=== PATIENT | female | born 1965 | race Caucasian/White ===

== ENCOUNTER 2016-04-16 10:31 | Emergency (ER) | payer OTHER ==
[~2016-04-16] VITALS: Ht 160 cm; Wt 50.0 kg
[2016-04-16 10:35] VITALS: BP 121/83; PULSE 81; O2SAT 93
[2016-04-16 11:05] VITALS: BP 126/78; PULSE 85; RESP 21; O2SAT 99
[2016-04-16 11:31] LABS: BASOPHILS % (AUTO) 0.6 % (0-3); EOSINOPHILS % (AUTO) 1.4 % (0-5); MONOCYTES % (AUTO) 7.5 % (4-12); Mean Corpuscular Hemoglobin 32.7 pg (27.0-35.0); Mean Corpuscular Volume 94.5 fL (81-100); Platelet Count 250 bil/L (150-400)
--- NOTE | 2016-04-16 11:46 | ED.REPORT ---
HPI-Dizziness / Weakness Date of Service Apr 16, 2016 ED Provider: Krishan Martinez PA-C [employer] is a 50-year-old female who presents with chief complaint of heart palpitations and dizziness. The patient describes a one week history of intermittent lightheadedness occurring 3-4 times a day for less than a minute each. Last night she experienced 3 episodes of heart palpitations that caused her great deal of concern and brought her to the ED this morning. Patient reports a history 2 ablations approximately 10 years ago. She had been seen by Dr. Meadows in [place] who had her wear an event monitor and performed a stress echo approximately one year ago. Patient reports that Dr. Meadows told her she was "fine." She also complains of feeling quite fatigued, bloated and unintentional weight loss over the last year. She reports poor eating habits as well as a great deal of stress related to family members with health difficulties. Admits a 5-pack-year history of smoking but stopped approximately 5 years ago. Denies headache, vision changes, ear symptoms, syncope, chest pain, dyspnea, shortness of breath, wheezing, abdominal pain, vomiting, diarrhea, constipation, melena, hematochezia. Denies taking any medications and denies any history of hypertension, hyperlipidemia, LA, CVA, drug use. Nursing Notes Stated Complaint: LIGHTHEADED, HEART PALPITATIONS Chief Complaint: Dysrhythmia/Cardiac Nursing Notes Reviewed: Yes Allergies: Coded Allergies: Penicillins (Verified Allergy, Intermediate, Hives, 10/30/15) No Active Prescriptions or Reported Meds General Time Seen by MD: 10:59 Chief Complaint Lightheaded Risk Factors CVA Risk Stratification SmokingNo Age >60, No Anticoag/bleed diathesis, No Atrial fibrillation, No Carotid stenosis, No Clotting disorder, No Diabetes mellitus, No EtOH use, No Hyperlipidemia, No Hypertension, No Oral contraceptive, No Prior CVA/TIA Past Medical History Past Medical History Notes: PCP: Dr. Lauren Past Medical History History of A. fib with ablation, not on blood thinners Past Surgical History Cardiac ablation x2 x2 Family History Noncontributory Smoking History Former Smoker Social History Alcohol Use: "Social" Drug Use: Denies drug use Other Social History: Good social support, Lives alone, Local resident Ambulatory Status Independent Review of Systems General: Admits to fatigue. denies fever, chills, night sweats HEENT: Denies congestion, headache, sore throat. Respiratory: Denies dyspnea, cough, shortness of breath, wheezing. Cardiovascular: Denies chest pain, palpitations. Gastrointestinal: Admits bloating. Denies vomiting, diarrhea, abdominal pain. Genitourinary: Denies frequency, urgency, dysuria, hematuria. Otherwise as noted in HPI. Physical Exam General: Thin, no acute distress, mildly anxious. Head: Atraumatic, normocephalic. Eyes: No scleral icterus or injection. No discharge. Vision grossly intact. ENT: Voice clear, hearing grossly intact. Respiratory: Regular rate and rhythm. Breath sounds present, clear to auscultation and equal bilaterally. Cardiovascular: Regular rate and rhythm, without murmur, gallop or rub. No pedal edema. Gastrointestinal: Abdomen flat and non-tender without guarding or rebound. Bowel sounds normoactive. No masses appreciated. Skin: Warm and dry. Neurological: Grossly nonfocal. Psychological: alert and oriented. Speech appropriate, linear and logical. Behavior appropriate. Initial Vital Signs Vital Signs (First) Date Time Temp Pulse Resp B/P Pulse Ox O2 Delivery O2 Flow Rate FiO2 04/16/16 10:35 36.2 81 121/83 93 04/16/16 11:05 21 Room Air Initial VS: Reviewed Interpretation & Diagnostics Lab Results Interpretation Result Diagram: 04/16/16 1110 04/16/16 1110 Test 04/16/16 11:10 White Blood Count 3.6th/mm3 (3.8-10.1) Red Blood Count 4.19mil/mm3 (3.90-5.20) Hemoglobin 13.7g/dL (12.0-15.6) Hematocrit 39.6% (35.0-46.0) Mean Corpuscular Volume 94.5fL (81-100) Mean Corpuscular Hemoglobin 32.7pg (27.0-35.0) Mean Corpuscular Hemoglobin Concent 34.6% (32.0-37.0) Red Cell Distribution Width 13.1% (12.3-15.4) Platelet Count 250bil/L (150-400) Neutrophils (%) (Auto) 67.0% (40-74) Lymphocytes (%) (Auto) 23.2% (14-46) Monocytes (%) (Auto) 7.5% (4-12) Eosinophils (%) (Auto) 1.4% (0-5) Basophils (%) (Auto) 0.6% (0-3) Sodium Level 139mEq/L (134-144) Potassium Level 3.7mEq/L (3.5-5.2) Chloride Level 101mEq/L (97-108) Carbon Dioxide Level 27mmol/L (18-29) Blood Urea Nitrogen 11mg/dL (6-24) Creatinine 0.58mg/dL (0.57-1.00) Estimat Glomerular Filtration Rate 156mL/min (>59) Glucose Level 79mg/dL (60-99) Calcium Level 9.5mg/dL (8.5-10.1) Magnesium Level 2.0mg/dL (1.6-2.6) Total Bilirubin 0.4mg/dL (0.0-1.2) Aspartate Amino Transf (AST/SGOT) 22U/L (0-50) Alanine Aminotransferase (ALT/SGPT) 11U/L (0-32) Alkaline Phosphatase 53U/L (25-150) Troponin T 0.010ug/L (0.0-0.011) Total Protein 7.6g/dL (6.4-8.4) Albumin 4.3g/dL (3.4-5.0) Thyroid Stimulating Hormone (TSH) 1.390uIU/mL (0.450-4.500) X-Ray Chest Interpretation Chest Xray Interpretation: PROCEDURE: X-RAY CHEST ONE VIEW, PORTABLE ([id number]) INDICATIONS: Dizziness IMPRESSION: No acute disease Interpretation / Wet Read by: Interpret - Radiologist, Interp - P Re-Eval/Medical Decision Med Decision/Clinical Course Discussed case with Dr. Hampton I discussed this case with Dr. Hampton. In brief this is a 50-year-old female who presents with chief complaint of brief episodes of lightheadedness over the last week as well as 3 episodes of brief palpitations last night. Her symptoms are not present in the department this time. History significant for atrial fibrillation treated with 2 ablations approximately 10 years ago. He by splunk dashboard developer in [place] approximately year ago, fitted with an event monitor and performed a stress test. Patient reports that she was given a clean bill of health after these tests. She states that the palpitations she felt last night are different than the one she felt prior to those tests. CBC, CMP, troponin, magnesium, TSH, EKG , chest x-ray are all normal in the department today. She has no risk factors for TIA other than a short history of smoking that ended 5 years ago. Clinical presentation appears atypical for pulmonary embolus, no findings suggesting DVT. Discussed the case with Dr. Salinas from the residency clinic. He agreed to see the patient and arrange another event monitor. I was also concerned about patient's reported one-year history of unintentional weight loss and bloating. She has no red flag symptoms or findings for malignancy at this time and I am more concerned about depression. I asked her to talk about her weight loss and depression with her primary care provider. Provided follow-up referral and return precautions. Patient Discharge & Departure Impression: Primary Impression: Palpitations Disposition: Home Discharge Condition All VS Reviewed: Yes Condition: Stable Patient Instructions: Palpitations (ED) Additional Instructions: Evaluation for lightheadedness and palpitations in the ED today. Physical is extremely reassuring, and all the tests we performed are basically normal. We feel confident that your symptoms were not caused by a heart attack, blood clot or stroke. You are stable and safe to be discharged to home. I contacted the on-call physician at the residency clinic who suggested that you call on Monday to arrange follow up with him sooner than the appointment that you already have. Call the [facility] and ask for an appointment with Dr. Salinas. At that time he can make arrangements to have an event monitor placed to determine the nature of your palpitations. Please also mention your possible depression and unintentional weight loss, so that these can be addressed. He is return to emergency department for any new or worsening symptoms including extended periods of palpitations, chest pain, shortness of breath, loss of consciousness or near loss of consciousness. Referrals: [facility] EDSupervising Provider for APC: Fabio Hampton MD [facility] Krishan Martinez PA-C Apr 16, 2016 11:46
[2016-04-16 11:53] LABS: TROPONIN T 0.01 ug/L (0.0-0.011)
--- NOTE | 2016-04-16 12:17 | DRSVH ---
PROCEDURE: X-RAY CHEST ONE VIEW, PORTABLE ([id number]) INDICATIONS: Dizziness TECHNIQUE: One view of the chest was acquired. COMPARISON: [facility], CR, XR CHEST 1VW (PORTABLE), 08/29/2015, 16:06. FINDINGS: Surgical changes and devices: None. Lungs and pleura: No pleural effusions or pneumothorax. Lungs are clear. Mediastinum: Mediastinal contours appear normal. Heart size is normal. Bones and chest wall: No suspicious bony lesions. Overlying soft tissues appear unremarkable. IMPRESSION: No acute disease Dictated by: Marco Giordano M.D. on 04/16/2016 at 12:15 Approved by: Marco Giordano M.D. on 04/16/2016 at 12:15
[2016-04-16 12:44] VITALS: BP 100/64; PULSE 80; RESP 25; O2SAT 99
[2016-04-16 13:29] VITALS: BP 110/65; PULSE 70; RESP 20; O2SAT 100
== END 2016-04-16 14:11 | disposition home or self-care (01) ==
LOC: SED 10:31
DX: R00.2 Palpitations (principal); R42 Dizziness and giddiness; I48.91 Unspecified atrial fibrillation; Z87.891 Personal history of nicotine dependence; Z88.0 Allergy status to penicillin

== ENCOUNTER 2016-04-27 10:13 | Emergency (ER) | payer OTHER ==
[~2016-04-27] VITALS: Ht 160 cm; Wt 47.7 kg
[2016-04-27 10:17] VITALS: BP 131/90; PULSE 83; RESP 18; O2SAT 99
[2016-04-27 10:49] LABS: BASOPHILS % (AUTO) 0.4 % (0-3); EOSINOPHILS % (AUTO) 1.2 % (0-5); MONOCYTES % (AUTO) 12.1 % (4-12); Mean Corpuscular Hemoglobin 32.7 pg (27.0-35.0); NEUTROPHILS % (AUTO) 55.3 % (40-74); Platelet Count 213 bil/L (150-400)
--- NOTE | 2016-04-27 11:02 | ED.REPORT ---
HPI-General Illness Date of Service Apr 27, 2016 ED Provider: Cristi Sanchez DO History of Present Illness: Ms. Liang Tapia is a pleasant 50-year-old female with past medical history significant for 2 ablations 8 years ago, currently not on any medications and periodically is followed up by her collar technical buyer Dr. Meadows of [place] with various Holter monitors and Z patches, who presents to [facility] emergency Department today for 5 hour history overnight disturbing heart palpitations that she describes as very irregular "like her heart is going over train tracks" extending down into her abdomen with a bounding pulse which she states moves her body. She is very disturbed by these findings overnight because usually subside within a few beats however these lasted 5 hours. She reports chronic night sweats, anxiety. She denies dizziness, headache, syncope, chest pain, fever, chills, shortness of breath, abdominal pain, constipation, diarrhea. Of note she developed a very painful tooth in her right lower jaw 3 months ago was prescribed seven-day course of clindamycin which she never took. On Monday, 5 days ago, she developed severe 10 out of 10 left-sided upper molar pain that she describes worst pain of her life which lasted for roughly 24 hours. She did not see a dentist, and began taking her clindamycin and using salt water rinses. Again she denies fever, chills, nausea, vomiting and the pain has since subsided without use of pain medications. Nursing Notes Stated Complaint: PALPITATIONS Chief Complaint: Dysrhythmia/Cardiac Nursing Notes Reviewed: Yes Allergies: Coded Allergies: Penicillins (Verified Allergy, Intermediate, Hives, 04/27/16) No Active Prescriptions or Reported Meds General Time Seen by MD: 11:01 Chief Complaint Other Sudden in Onset?: Yes Past Medical History Past Medical History Notes: PCP: Dr. Lauren Past Medical History History of A. fib with ablation, not on blood thinners Past Surgical History Cardiac ablation x2 x2 Family History Noncontributory Smoking History Former Smoker Social History Alcohol Use: "Social" Drug Use: Denies drug use Other Social History: Good social support, Lives alone, Local resident Ambulatory Status Independent Review of Systems A comprehensive review of systems was conducted with the patient and found to be negative except as above in the History of Present Illness. Complete sys rev & neg: except as marked. Physical Exam General: Pleasant lady sitting upright in bed appears older than stated age, thin and cachectic, appropriately interactive HEENT: Normocephalic, atraumatic. Stye present on left eyelid. External ears without defect. Pupils equal, round, and reactive to light and accommodation. Anicteric sclerae, moist conjunctivae, and no lid lag. Oropharynx free of erythema and cobble stoning with moist mucosa. Neck: Supple with full range of motion. No jugular venous distension. No bruits. No lymphadenopathy or thyromegaly. Cardiovascular: Regular rate and rhythm with no murmurs, rubs, or gallops appreciated Pulmonary: Clear to auscultation bilaterally with no crackles, wheezes, or rhonchi. Normal respiratory effort with no use of accessory muscles. Abdomen: Bowel tones present. Soft, nontender, thin, nondistended. No hepatosplenomegaly or masses appreciated. Extremities: No clubbing, cyanosis, edema, or lymphadenopathy appreciated. Skin: Normal temperature, turgor, and texture; no rash, ulcers, or subcutaneous nodules appreciated. Neurological: Cranial nerves grossly intact. Normal muscle strength, tone, and bulk. Reflexes, coordination, and sensory function within normal limits. No known gait impairment. Psychiatric: Normal mood and affect. Alert and oriented to person, place, and time. Vital Signs Vital Signs Date Time Temp Pulse Resp B/P Pulse Ox O2 Delivery O2 Flow Rate FiO2 04/27/16 10:17 36.2 83 18 131/90 99 Room Air Interpretation & Diagnostics Lab Results Interpretation Result Diagram: 04/27/16 1038 04/27/16 1038 Test 04/27/16 10:38 White Blood Count 2.5th/mm3 (3.8-10.1) Red Blood Count 4.19mil/mm3 (3.90-5.20) Hemoglobin 13.7g/dL (12.0-15.6) Hematocrit 39.4% (35.0-46.0) Mean Corpuscular Volume 94.0fL (81-100) Mean Corpuscular Hemoglobin 32.7pg (27.0-35.0) Mean Corpuscular Hemoglobin Concent 34.8% (32.0-37.0) Red Cell Distribution Width 13.0% (12.3-15.4) Platelet Count 213bil/L (150-400) Neutrophils (%) (Auto) 55.3% (40-74) Lymphocytes (%) (Auto) 31.0% (14-46) Monocytes (%) (Auto) 12.1% (4-12) Eosinophils (%) (Auto) 1.2% (0-5) Basophils (%) (Auto) 0.4% (0-3) Sodium Level 140mEq/L (134-144) Potassium Level 4.3mEq/L (3.5-5.2) Chloride Level 102mEq/L (97-108) Carbon Dioxide Level 25mmol/L (18-29) Blood Urea Nitrogen 11mg/dL (6-24) Creatinine 0.61mg/dL (0.57-1.00) Estimat Glomerular Filtration Rate 148mL/min (>59) Glucose Level 92mg/dL (60-99) Calcium Level 9.0mg/dL (8.5-10.1) Magnesium Level 2.0mg/dL (1.6-2.6) Total Bilirubin 0.5mg/dL (0.0-1.2) Aspartate Amino Transf (AST/SGOT) 25U/L (0-50) Alanine Aminotransferase (ALT/SGPT) 14U/L (0-32) Alkaline Phosphatase 55U/L (25-150) Troponin T < 0.010ug/L (0.0-0.011) Total Protein 7.4g/dL (6.4-8.4) Albumin 4.2g/dL (3.4-5.0) Hold Henry Top Tube Received (Received) Re-Eval/Medical Decision Med Decision/Clinical Course Ms. Liang Tapia has a history of multiple ablations for tachyarrhythmias, 8 years ago. She is being followed by technical buyer Dr. Dori Adan. She is currently not on any medications and her heart rate is controlled in the 80s. On EKG and throughout her stay she was in sinus rhythm between 70 and [address] no [address] elevations or depressions and her troponins were negative. She currently does not have symptoms that she describes this morning of unremitting and alarming palpitations. She is clearly anxious regarding this matter. Her laboratory values were within normal limits aside from a white count which was on the low end 2.5, although she does tend to run, on previous admits, around that range. Chest x-ray was unremarkable and showed no acute processes. Her vitals on admission were stable and have remained stable. We recommend close follow-up with her technical buyer in 1 weeks time. Discharge & Departure Shift Change Sign-Out Discussed Complaint(s): Yes Laboratory Evaluation: Lab evaluation discussed Response to Therapy: Unchanged Primary Impression: Palpitations Disposition: Home Discharge Condition All VS Reviewed: Yes Condition: Stable Patient Instructions: Palpitations (ED), Supraventricular Tachycardia (DC) Additional Instructions: During you visit to [facility] Emergency Department we obtained an EKG ( electrocardiogram, measures the electrical health of your heart), blood work for infectious markers, hemoglobin levels, electrolytes, and troponins to measure chemical markers for damage of the heart. All your lab values, troponin markers and EKG were within normal limits. Do not hesitate to call emergency services or your primary care physician if you experience any of the following. -High unrelenting fevers. -Fast heart rate at over 100 beats per minute for a sustained 15 minutes at rest. -Uncontrolled vomiting. -Severe hypertension or hypotension. -Syncope or loss of consciousness. -Chest pain. -Severe shortness of breath. Follow-up closely with her technical buyer Dr. Meadows at [facility] in [place] within 1 week's time. Follow up with your primary care physician in 1-2 weeks time following your emergency department visit for medication checks and general well-being. Referrals: Billie Lauren MD (PCP) Attending Statement The patient was seen and examined together with Dr. Sauceda on 04/27/16 and I have added additional information to the note above. copies to: Kalin Meadows MD; Billie Lauren MD, Timothy S DO Apr 27, 2016 11:02 SIENA SAUCEDA DO Apr 27, 2016 12:19
[2016-04-27 11:23] LABS: TROPONIN T < 0.010 ug/L (0.0-0.011)
--- NOTE | 2016-04-27 11:36 | DRSVH ---
PROCEDURE: X-RAY CHEST ONE VIEW, PORTABLE ([id number]) INDICATIONS: PALPITATIONS TECHNIQUE: One view of the chest was acquired. COMPARISON: [facility], CR, XR CHEST 1VW (PORTABLE), 04/16/2016, 11:33. [facility], CR, XR CHEST 1VW (PORTABLE), 08/29/2015, 16:06. [facility], CR, CHEST 1VW (PORTAB LE), 09/19/2014, 12:23. FINDINGS: Surgical changes and devices: None. Lungs and pleura: No pleural effusions or pneumothorax. Lungs are clear. Mediastinum: Mediastinal contours appear normal. Heart size is normal. Bones and chest wall: No suspicious bony lesions. Overlying soft tissues appear unremarkable. IMPRESSION: No acute process. Dictated by: Ernie Thompson M.D. on 04/27/2016 at 11:34 Approved by: Ernie Thompson M.D. on 04/27/2016 at 11:34
== END 2016-04-27 12:28 | disposition home or self-care (01) ==
LOC: SED 10:13
DX: R00.2 Palpitations (principal); R61 Generalized hyperhidrosis; F41.9 Anxiety disorder, unspecified; Z86.79 Personal history of other diseases of the circulatory system; Z98.890 Other specified postprocedural states; Z87.891 Personal history of nicotine dependence; Z88.0 Allergy status to penicillin

== ENCOUNTER 2016-10-15 20:23 | Emergency (ER) | payer OTHER ==
[~2016-10-15] VITALS: Ht 160 cm; Wt 49.1 kg
[2016-10-15 20:30] VITALS: BP 109/76; PULSE 74; RESP 16; O2SAT 100
--- NOTE | 2016-10-15 21:36 | DRSVH ---
PROCEDURE: X-RAY LEFT FOOT, TWO VIEWS ([id number]) INDICATIONS: FOOT PX TECHNIQUE: 2 views of the foot were acquired. COMPARISON: None. FINDINGS: Bones: No fractures or dislocations. No suspicious bony lesions. Soft tissues: No tibiotalar joint effusion. Achilles tendon appears normal. IMPRESSION: No acute radiographic findings. If pain persists, repeat study in 5-7 days is recommende d to exclude occult fracture. Dictated by: Nicky Roman M.D. on 10/15/2016 at 21:34 Approved by: Nicky Roman M.D. on 10/15/2016 at 21:35
--- NOTE | 2016-10-15 22:29 | ED.REPORT ---
HPI-Extremity Problem Lower Date of Service Oct 15, 2016 ED Provider: Kalin Mclean MD 50 yo female with pmh of ablation for arrhythmia, presents today with pain in the L foot. she states that pain began 3 days ago and has been progressively worse since that time. she denies tauma or overuse. The pain is located in he anterior foot and she cannot pinpoint one location for the pain. 8/10 that does not radiate. nothing makes pain better, worse with ambulation. Pain is not affected with palpation. denies fever, chills, loss of sensation, weakness. Nursing Notes Stated Complaint: PAIN IN LEFT FOOT Chief Complaint: General Complaint Nursing Notes Reviewed: Yes Allergies: Coded Allergies: Penicillins (Verified Allergy, Intermediate, Hives, 04/27/16) Scheduled PRN Naproxen (Naprosyn) 500 Mg Tablet 500 MG PO BID PRN PRN For Pain General Time Seen by MD: 22:00 Chief Complaint Other (L foot pain) Quality: Painful, Sharp, Stabbing Severity: Current: Pain level 8 out of 10 Pertinent Negative: Relieved by nothing Risk-Extremity Prob Lower Well's Criteria for DVT Well's DVT Score: 0 pts (low risk 5%) Past Medical History Past Medical History Notes: PCP: Dr. Lauren Past Medical History History of A. fib with ablation, not on blood thinners Past Surgical History Cardiac ablation x2 x2 Family History Noncontributory Smoking History Former Smoker Social History Alcohol Use: "Social" Drug Use: Denies drug use Other Social History: Good social support, Lives alone, Local resident Ambulatory Status Independent Review of Systems Constitutional: Denies: Chills, Fever Complete sys rev & neg: except as marked. Physical Exam Initial Vital Signs Vital Signs (First) Date Time Temp Pulse Resp B/P Pulse Ox O2 Delivery O2 Flow Rate FiO2 10/15/16 20:30 36.3 74 16 109/76 100 Room Air Initial VS: Reviewed, Vital signs normal General/Constitutional: Well-developed Head / Eyes: Atraumatic, Normocephalic, PERRL ENT: Mucous membranes moist, Conjunctiva normal, No scleral icterus Neck: Supple, Non-tender, Full range of motion Respiratory: Breath sounds normal, Clear to auscultation, No respiratory distress Cardiovascular: Regular rate & rhythm, Heart sounds normal, Intact distal pulses Upper Extremities: Vascular intact, Neuro intact, No swelling, No tenderness Skin: Warm, Dry, No cyanosis Neurologic: Alert, Oriented, Nonfocal Psychiatric: Mood/affect normal, Behavior normal, Normal thought content Ankle / Foot: Atraumatic, Inspection NL, Full range of motion, No swelling, No erythema, Non-tender, No deformity, Neurologic intact, Vascular intact, No ligamentous injury, Tendon function NL, No compartment syndrome, No circumferential injury, No edema Interpretation & Diagnostics X-Ray Interpretation Xray Interpretation: no acute process X-Ray Ordered: Foot left Interpretation / Wet Read by: Interpret - ED physician, Interp - Resident Re-Eval/Medical Decision Med Decision/Clinical Course imaging neg. symptomatology and PE not concerning for acute process. fracture poss, however unlikely with no hx of overuse/trauma. repeat xray in 7-10 days if pain continues unabated after splint placement. Counseled Regarding: Diagnosis, Lab results, Need for follow-up, When/why to return to ED Discharge & Departure Impression: Primary Impression: Foot pain, right Disposition: Home Discharge Condition All VS Reviewed: Yes Condition: Stable Additional Instructions: You have come to the ER today with complaint of pain in the Left foot. Based on my on my physical exam and our discussion I do not believe there is any serious pathology to consider at this time, and no large workup to be done . You were fitted with a brace here in the ER that you can wear to increase our comfort with mobility. Pain meds we offered but declined, feel free to use over the counter medications as needed for pain, Naproxen may be of some benefit over ibuprofen, and I have provided a prescription for this if desired. We suggest follow up with primary care and/or Othopedics in the next 1-2 weeks especially if pain continues, an Xray of the foot in 7-10 may illucidate a fracture that was not visible on imaging today. We are aware that you do not currently have a primary care provider sowe have included a list of possible references for followup. Please return to ED if you develop fever, numbness, or weakness in the foot or leg, or any other new symptoms which you deem concerning Referrals: NOPCP (PCP) [facility] Residency [facility] Attending Statement As attending of record for this patient, I conducted an independent history and physical examination, and agree with the resident documentation as above and as amended. Mat Gill DO Oct 15, 2016 22:29 Kalin Mclean MD Oct 16, 2016 06:50
[2016-10-15] MEDS ORDERED: NAPR500T PO (22:46)
[2016-10-15 23:15] VITALS: BP 105/71; PULSE 62; RESP 18; O2SAT 100
== END 2016-10-15 23:09 | disposition home or self-care (01) ==
LOC: SED 20:23
DX: M79.672 Pain in left foot (principal); I48.91 Unspecified atrial fibrillation; Z87.891 Personal history of nicotine dependence; Z88.0 Allergy status to penicillin